=== PATIENT | female | born 1955 | race Caucasian/White ===

== ENCOUNTER 2018-04-08 07:33 | Emergency (ER) ==
[2018-04-08 07:49] VITALS: TEMP 98.6; BMI 24.7
--- NOTE | 2018-04-08 08:16 | ED.PDOC ---
General ED Provider: Dr. ANITA HEMPHILL Chief Complaint: Rash Stated Complaint: Rash Lt side of Forehead, facial region and periorbital region. States onset of pain and burning sensation to Lt Side of posterior C spine region 2 days ago then similar sensation to Lt side of forehead, periorbital region and cheek. Currently states Lt side of face and forehead not painful Time Seen by Physician: 08:00 Mode of Arrival: Walk-In Information Source: Patient Exam Limitations: No limitations Primary Care Provider: ANTONIA INGRAM Nursing and Triage Documentation Reviewed and Agree: Yes Does patient meet sepsis criteria?: No System Inflammatory Response Syndrome: Not Applicable Sepsis Protocol: For patient's 13 years and over: Temp is 96.8 and below OR 101 and greater Pulse >90 BPM Resp >20/minute Acutely Altered Mental Status Are patient's symptoms suggestive of a new infection, such as: -Pneumonia -Skin, Soft Tissue -Endocarditis -UTI -Bone, Joint Infection -Implantable Device -Acute Abdominal Infection -Wound Infection -Meningitis -Blood Stream Catheter Infection -Unknown Review of Systems - Review Of Systems Constitutional: Reports: No symptoms Eyes: Reports: No symptoms Ears, Nose, Mouth, Throat: Reports: No symptoms Respiratory: Reports: No symptoms Cardiac: Reports: No symptoms GI: Reports: No symptoms : Reports: No symptoms Musculoskeletal: Reports: No symptoms Skin: Reports: No symptoms (as described) Neurological: Reports: No symptoms Endocrine: Reports: No symptoms Hematologic/Lymphatic: Reports: No symptoms All Other Systems: Reviewed and Negative Past Medical History - Past Medical History Previously Healthy: Yes Endocrine: Reports: None Cardiovascular: Reports: None Respiratory: Reports: None Hematological: Reports: None Gastrointestinal: Reports: None Genitourinary: Reports: None Neuro/Psych: Reports: None Musculoskeletal: Reports: None Cancer: Reports: None Last Menstrual Period: post menopause - Surgical History General Surgical History: Reports: None - Family History Family History: Reports: None - Social History Smoking Status: Never smoker Hx Substance Use: No Alcohol Screening: Occasionally - Immunizations Tetanus Shot up to Date: No (unknown) Physical Exam - Physical Exam Appearance: Well-appearing Ill-appearing: None Pain Distress: Mild Eyes: EARNEST, EOMI, Conjunctiva inflammed (Lt Marcelo conjunctival inflamation,Iris wnl. EARNEST, lt eyelid edematous.) ENT: Ears normal, Nose normal, Oropharynx normal Skin: Warm (Scattered red skin lesions Lt forehead,Lt Facial, Cheek and eyelid with central Vesicular appearing lesions-dry. No lesions around ear, or neck) Neurological: Sensation intact (no appreciable hypesthesia to palpation or touch to involved areas.), Motor intact, Reflexes intact, Cranial nerves intact Psychiatric: Affect appropriate, Mood appropriate Critical Care Note - Critical Care Note Total Time (mins): 0 Course - Course Orders, Labs, Meds: Orders Category Date Time Status ED EYE IRRIGATION .ONCE EMERGENCY 04/08/18 08:41 Ordered Fluorescein Sodium [Fluorets] MEDS 04/08/18 08:45 Discontinued 1 strip OP .STK-MED ONE Fluorescein Sodium [Ful-Misti] MEDS 04/08/18 08:41 Stat 1 strip OP ONCE STA Valacyclovir HCl [Valtrex] MEDS 04/08/18 08:33 Stat 1,000 mg PO ONCE STA Medications Discontinued Medications Generic Name Dose Route Start Last Admin Trade Name Freq PRN Reason Stop Dose Admin Fluorescein Sodium 1 strip 04/08/18 08:41 04/08/18 08:49 Ful-Misti OP 04/08/18 08:42 1 strip ONCE STA Administration Valacyclovir HCl 1,000 mg 04/08/18 08:33 04/08/18 08:48 Valtrex PO 04/08/18 08:34 1,000 mg ONCE STA Administration Vital Signs: Temp Pulse Resp BP Pulse Ox 04/08/18 07:35 98.6 F 89 20 166/99 H 95 Departure - Departure Time of Disposition: 09:00 Disposition: HOME SELF-CARE Discharge Problem: Herpes zoster, Herpes zoster conjunctivitis of left eye Instructions: Shingles (ED) Condition: Good Pt referred to PMD for follow-up: Yes IPMP verified?: No Additional Instructions: Take meds as directed Monitor for Worsening facial pain or changes in eye status Follow up with PCP in 1 week and with oven worker/checkout supervisor if eye reddnsess worsens of fails to improve over next 48 hrs Monitor BP and seek tx if is elevated >140/90 Prescriptions: Valacyclovir HCl [Valacyclovir] 1,000 mg PO Q8HR #21 tablet Allergies/Adverse Reactions: Allergies ampicillin Adverse Reaction (Verified 04/08/18 07:50) Home Medications: Ambulatory Orders Pseudoephedrine HCl [Sudafed 12 Hour] 120 mg PO DAILY 04/08/18 Valacyclovir HCl [Valacyclovir] 1,000 mg PO Q8HR #21 tablet 04/08/18 Disposition Discussed With: Patient, Family
[2018-04-08] MEDS ORDERED: FLUORETS OP ONE (08:45)
[2018-04-08] MEDS: VALTREX PO STA (08:48)
[2018-04-08] MEDS: FUL-GLO OP STA (08:49)
[2018-04-08 09:36] VITALS: BP 156/105
== END 2018-04-08 09:38 | disposition home or self-care (01) ==
LOC: ED 07:33
DX: B02.31 Zoster conjunctivitis (principal); B02.9 Zoster without complications
CPT/HCPCS: 99282